=== PATIENT | female | born 1960 | race Caucasian/White ===

== ENCOUNTER 2022-06-20 12:39 | Emergency (ER) | payer SELFPAY ==
[~2022-06-20] VITALS: Ht 172.7 cm; Wt 102.1 kg
[~2022-06-20 12:39] MED LIST: ALBU90OI INH; AZIT250 PO; CRUTCH4 USE; CYCL10 PO; DEXGUASY PO; HYDACE5 PO; HYDR1TAB94 PO; MULVITMINF PO; NAPR500 PO; NITR.3SL SL; NITR.4SL SL; ONDA4ODT MM; PROCODE120 PO
[2022-06-20] MEDS ORDERED: Vistaril25 MG PO (14:09)
== END 2022-06-20 14:25 | disposition home or self-care (01) ==
LOC: ER 12:39
DX: L25.9 Unspecified contact dermatitis, unspecified cause (principal); L50.9 Urticaria, unspecified; F17.200 Nicotine dependence, unspecified, uncomplicated; Z88.0 Allergy status to penicillin; Z79.899 Other long term (current) drug therapy
CPT/HCPCS: A9270; J1100

== ENCOUNTER 2024-06-08 07:10 | Emergency (ER) | payer OTHER ==
[~2024-06-08] VITALS: Ht 160 cm; Wt 90.0 kg
[~2024-06-08 07:10] MED LIST changes: +Vistaril25 MG PO
[2024-06-08 09:54] VITALS: BP 136/82
[2024-06-08 10:22] LABS: CORONAVIRUS COVID-19 AG Negative (NEGATIVE); INFLUENZA A AG Positive (NEGATIVE); INFLUENZA B AG Negative (NEGATIVE)
[2024-06-08] MEDS ORDERED: Tamiflu75 MG PO (15:20)
== END 2024-06-08 09:54 | disposition home or self-care (01) ==
LOC: ER 07:10
PROVIDERS: Physician Assistant
DX: J10.1 Influenza due to other identified influenza virus with other respiratory manifestations (principal); F17.200 Nicotine dependence, unspecified, uncomplicated; Z88.0 Allergy status to penicillin
CPT/HCPCS: 87081; 87147; 87428-QW; 87430; 99283